=== PATIENT | female | born 1945 | race Hispanic/Latino ===

== ENCOUNTER 2020-07-14 08:00 | Outpatient (CLI) | payer MEDICARE, SELFPAY ==
--- NOTE | ~2020-07-14 | MM_ITS ---
EXAMINATION: MM screening meredith BI w beny HISTORY: Screening mammogram TECHNIQUE: Craniocaudal and mediolateral oblique 3-D tomosynthesis images were obtained and synthetic 2-D images were generated. CAD analysis was submitted and interpreted. COMPARISON: 12/23/2018, 12/19/2017, 12/06/2016 bilateral digital screening mammogram examinations BREAST PARENCHYMAL COMPOSITION: There are scattered areas of fibroglandular density. FINDINGS: There is no evidence of suspicious mass, calcification, or architectural distortion to sugg est malignancy in either breast. There has been no suspicious interval change. IMPRESSION: 1. No mammographic evidence of malignancy. 2. Recommend routine screening mammography in one year. BI-RADS Category 1: Negative Reviewed, dictated and finalized at location A.
== END 2020-07-14 08:01 | disposition home or self-care (01) ==
PROVIDERS: PCP Internal Medicine; Visit Provider Internal Medicine
DX: Z12.31 Encounter for screening mammogram for malignant neoplasm of breast (principal)
CPT/HCPCS: 77063; 77067

== ENCOUNTER 2022-01-30 08:29 | Emergency (ER) | payer MEDICARE, SELFPAY ==
--- NOTE | 2022-01-30 08:32 | ED.EAR ---
HPI - Ear Problem General Chief complaint: Ear Stated complaint: ear pain Time Seen by Provider: 01/30/22 08:32 Source: patient Mode of arrival: ambulatory Limitations: no limitations History of Present Illness HPI Narrative: Ms. Dutton is a 76-year-old female patient presenting to the clinic today with complaints of ear pain x2 days. She reports that her ear does not necessarily hurt a whole lot however she is having difficulty hearing out of her left ear and this is bothersome to her. She denies any fever or chills. She denies any known exposure to anybody with COVID, flu, or strep. MD Complaint: ear pain Related Data Home Medications Medication Instructions Recorded Confirmed lancets 28 gauge #25 each 09/28/19 01/30/22 aspirin 81 mg tablet,delayed 81 mg PO DAILY 03/30/20 01/30/22 release Allergies Allergy/AdvReac Type Severity Reaction Status Date / Time codeine Allergy Unknown Unknown Verified 01/30/22 08:31 Review of Systems Review of Systems: Pertinent positives per HPI. Patient denies any fever, chills, rash, headache, visual changes, dizziness, cough, runny nose, sore throat, shortness of breath, chest pain, palpitations, nausea, vomiting, diarrhea, constipation, abdominal pain, or any urinary issues. [facility] Family History Family History Sibling Diabetes mellitus Hypertension Mother Patient's mother is Father Patient's father is Social History Social History Smoking status: Never smoker Alcohol intake: never Comments At the time of my signature, I reviewed and agree with the nursing past medical, surgical, social, and family history. There is no relevant family history pertinent to the patient complaint. Exam Narrative: General: Well-developed, well nourished, in no apparent distress Head: Normocephalic, atraumatic Eyes: Pupils equally round and reactive to light bilaterally, EOM intact, sclera and conjunctive clear, no discharge, lids normal Ears: Right TMs intact and clear, right ear canal clear, left ear canal swollen and red, unable to visualize left TM, no drainage, unable to hear out of the left ear Nose: Nares patent, no discharge, no inflammation, no sinus tenderness. Mouth: Oropharynx without lesions or masses, good dentition, MMM. Neck: Supple, trachea midline, no enlargement of anterior or posterior cervical nodes, no thyroid masses or goiter palpable. Cardio: Regular rate and rhythm, s1 and s2 normal, no murmur appreciated. Resp: Clear to auscultation bilaterally anteriorly and posteriorly, no rhonchi, rales, wheezing or rubs Course Course Emergency Course: Portions of this record may have been created with voice recognition software. Level of Care: Express Care Visit Vital Signs Vital signs: Vital signs reviewed Medical Decision Making MDM Narrative Medical decision making narrative: At the time of visit patient is resting comfortably on the exam table. Upon exam patient has left ear canal swelling and it appears to be almost swollen shut. Will prescribe prescription for some ofloxacin drops and asked for ear wick to be used. Supportive measures were discussed and patient patient voiced understanding of discharge instructions and agrees to treatment plan. Differential Diagnosis Differential Diagnosis: Otitis externa, otitis media, otalgia, eustachian tube dysfunction, upper respiratory infection Discharge Plan Discharge Clinical Impression: Otitis externa Qualifiers: Otitis externa type: diffuse Chronicity: acute Laterality: left Qualified Code(s): H60.312 - Diffuse otitis externa, left ear Patient Disposition: Home, Self-Care Condition: Stable Instructions: Antibiotic Form, Swimmer's Ear (ED) Additional Instructions: Take any prescribed medications only as directed Instill drops into th
[2022-01-30 08:43] VITALS: BP 112/56; PULSE 65; RESP 16; TEMP 36.3; O2SAT 99
== END 2022-01-30 08:45 | disposition home or self-care (01) ==
LOC: EXPCOLL 08:34
PROVIDERS: Emergency Provider Nurse Practitioner Family; PCP Internal Medicine
DX: H60.312 Diffuse otitis externa, left ear (principal); E78.00 Pure hypercholesterolemia, unspecified; I10 Essential (primary) hypertension; M85.80 Other specified disorders of bone density and structure, unspecified site; H54.7 Unspecified visual loss; E11.39 Type 2 diabetes mellitus with other diabetic ophthalmic complication; H42 Glaucoma in diseases classified elsewhere
CPT/HCPCS: 99213; G0463

== ENCOUNTER 2022-05-20 12:24 | Outpatient (CLI) | payer MEDICARE, SELFPAY | END 2022-05-20 12:25 | disposition home or self-care (01) | LOC: ANHAUDIO 12:24 | PROVIDERS: PCP Family Medicine; Visit Provider Otolaryngology | DX: H93.12 Tinnitus, left ear (principal); H90.3 Sensorineural hearing loss, bilateral | CPT/HCPCS: 92557; 92567 ==

== ENCOUNTER 2022-06-15 08:33 | Outpatient (CLI) | payer MEDICARE, SELFPAY ==
--- NOTE | ~2022-06-15 | MR_ITS ---
EXAMINATION: MR IAC wo/w con DATE: 06/15/2022 10:02 INDICATION: Asymmetric hearing loss. TECHNIQUE: Magnetic resonance imaging (MRI) of the brain, brainstem, and internal auditory canals was performed without and with 15 mL MultiHance intravenous contrast. COMPARISON: None. FINDINGS: There is an empty sella. There is no intracranial hemorrhage, acute infarction, or abnormal intracranial mass lesion. There are scattered areas of nonspecific increased T2-weighted signal inte nsity in the cerebral white matter, which is within normal limits for the patient's age. The ventricl es are normal in size. The internal auditory canals and inner and middle ears are normal. The mastoid air cells are normal. There are likely changes of ocular lens replacement surgeries. There is inject ed material in right ocular globe. There are changes of right-sided scleral banding procedure. 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 The paranasal sinuses are clear. IMPRESSION: 1. No etiology for the patient's symptoms. Reviewed, dictated and finalized at location A.
== END 2022-06-15 08:34 | disposition home or self-care (01) ==
PROVIDERS: PCP Nurse Practitioner; Visit Provider Otolaryngology
DX: H91.93 Unspecified hearing loss, bilateral (principal); H91.8X9 Other specified hearing loss, unspecified ear
CPT/HCPCS: 70553; A9577

== ENCOUNTER 2022-11-06 08:14 | Outpatient (CLI) | payer MEDICARE, SELFPAY ==
[2022-11-06 09:03] LABS: Appearance Urine Slightly Cloudy (Clear); Bilirubin Urine Negative (Negative); Blood Urine Trace-intact (Negative); Color Urine Yellow (Yellow); Glucose Urine UA 3+ mg/dL (Negative); Ketones Urine Negative (Negative); Leukocyte Esterase Ur 1+ LEU/UL (Negative); Nitrate Urine Positive (Negative); Protein Urine Negative (Negative); Specific Grav Ur 1.015 (1.001-1.035); Urobilinogen Urine 0.2 mg/dL (<2.0)
[2022-11-06 09:14] LABS: Anion Gap 9 mmol/L (8-16); Blood Urea Nitrogen 17 mg/dL (7-17); Carbon Dioxide 25 mmol/L (22-30); Chloride 104 mmol/L (98-107); Cholesterol 146 mg/dL (0-200); Estimated Glomerular Filt Rate > 60; Glucose 149 mg/dL (65-110); HDL Direct 40 mg/dL; Potassium 3.8 mmol/L (3.4-5.0); Sodium 138 mmol/L (137-145); Triglycerides 157 mg/dL (<150)
[2022-11-06 09:19] LABS: Hemoglobin A1C 7.5 % (<5.7)
[2022-11-06 09:20] LABS: Bacteria Urine Trace /hpf; Mucus Urine Rare /lpf; Squamous Epithelial Cell Urine Rare /hpf (Few); WBC Clumps Urine Present /HPF; WBC Urine >75 /hpf
[2022-11-06 09:25] LABS: LDL Cholesterol Direct 74 mg/dL
[2022-11-06 09:33] LABS: Add Urine Microscopic? YES
[2022-11-06 09:38] LABS: Creatinine Urine 61.8 mg/dL
[2022-11-06 09:41] LABS: MALB Creatinine Ratio 13.9 mg/g (0-30); Microalbumin Urine Random 8.6 mg/L (0-16.7)
== END 2022-11-06 08:15 | disposition home or self-care (01) ==
LOC: ANHLAB 08:19
PROVIDERS: PCP Nurse Practitioner; Visit Provider Nurse Practitioner Family
DX: N30.01 Acute cystitis with hematuria (principal); M79.18 Myalgia, other site; M25.551 Pain in right hip; M47.9 Spondylosis, unspecified; M54.16 Radiculopathy, lumbar region; R60.9 Edema, unspecified; M54.51 Vertebrogenic low back pain; E78.5 Hyperlipidemia, unspecified; E11.9 Type 2 diabetes mellitus without complications; H54.8 Legal blindness, as defined in USA; J00 Acute nasopharyngitis [common cold]; I10 Essential (primary) hypertension
CPT/HCPCS: 36415; 80048; 80061; 81001; 82043; 83036; 87077; 87086; 87186

== ENCOUNTER 2023-02-14 08:58 | Outpatient (CLI) | payer MEDICARE, SELFPAY ==
[2023-02-14 10:09] LABS: Basophils Percent Auto 0.6 % (0.2-1.2); Eosinophils Percent Auto 0.8 % (0-4.4); Hematocrit 40.8 % (37.0-47.0); Immature Granulocyte Absolute 0.02 K/mm3 (0.00-0.031); Immature Granulocyte Percent A 0.4 % (0-0.5); Lymphocytes Absolute Auto 1.75 K/mm3 (0.9-3.2); Lymphocytes Percent Auto 36.3 % (18.3-44.2); Mean Corpuscular HGB Conc 31.9 g/dl (32-36); Mean Corpuscular Hemoglobin 27.7 pg (26-34); Mean Corpuscular Volume 86.8 fl (80-100); Mean Platelet Volume 9.3 fl (7.4-10.4); Monocytes Absolute Auto 0.4 K/mm3 (0.1-0.6); Monocytes Percent Auto 9.1 % (2.6-8.5); Neutrophils Absolute Auto 2.5 K/mm3 (1.3-6.7); Neutrophils Percent Auto 52.8 % (45.5-73.1); Platelet Count Result 198 k/mm3 (150-375); Red Cell Distribution Width 13.2 % (11.5-14.5); White Blood Count 4.8 K/mm3 (4.5-10.0)
[2023-02-14 10:21] LABS: Alanine Aminotransferase 29 U/L (6-35); Albumin Level 4.2 g/dL (3.5-5.1); Alkaline Phosphatase 55 U/L (38-126); Anion Gap 7 mmol/L (8-16); Aspartate Amino Transferase 29 U/L (14-36); Bilirubin,Total 0.6 mg/dL (0.2-1.3); Blood Urea Nitrogen 22 mg/dL (7-17); Calcium 9.6 mg/dL (8.4-10.2); Carbon Dioxide 29 mmol/L (22-30); Chloride 101 mmol/L (98-107); Cholesterol 146 mg/dL (0-200); Estimated Glomerular Filt Rate > 60; Glucose 139 mg/dL (65-110); HDL Direct 40 mg/dL; Phosphorus 4.3 mg/dL (2.5-4.5); Potassium 3.5 mmol/L (3.4-5.0); Sodium 137 mmol/L (137-145); Triglycerides 140 mg/dL (<150)
[2023-02-14 10:21] LABS: Appearance Urine Clear (Clear); Bacteria Urine 4+ /hpf; Bilirubin Urine Negative (Negative); Blood Urine Negative (Negative); Color Urine Yellow (Yellow); Glucose Urine UA 3+ mg/dL (Negative); Ketones Urine Negative (Negative); Leukocyte Esterase Ur 1+ LEU/UL (Negative); Nitrate Urine Positive (Negative); Non Pathogenic Casts 0-2; Protein Urine Negative (Negative); RBC Urine 0-2 /hpf (0-2); Specific Grav Ur 1.016 (1.001-1.035); Squamous Epithelial Cell Urine None seen /hpf (Few); Urobilinogen Urine 0.2 mg/dL (<2.0); WBC Urine 21-50 /hpf
[2023-02-14 10:22] LABS: Add Urine Microscopic? YES
[2023-02-14 10:25] LABS: Hemoglobin A1C 7.4 % (<5.7)
[2023-02-14 10:32] LABS: LDL Cholesterol Direct 78 mg/dL
[2023-02-14 10:52] LABS: Thyroid Stimulating Hormone 0.722 uIU/mL (0.465-4.680)
[2023-02-14 10:55] LABS: Creatinine Urine 64.4 mg/dL
[2023-02-14 10:59] LABS: MALB Creatinine Ratio 12.1 mg/g (0-30); Microalbumin Urine Random 7.8 mg/L (0-16.7)
[2023-02-14 11:17] LABS: Free T4 Free Thyroxine 1.28 ng/mL (0.78-2.19)
== END 2023-02-14 08:59 | disposition home or self-care (01) ==
PROVIDERS: PCP Nurse Practitioner; Visit Provider Nurse Practitioner Family
DX: J01.11 Acute recurrent frontal sinusitis (principal); M79.18 Myalgia, other site; M25.552 Pain in left hip; M54.16 Radiculopathy, lumbar region; M54.51 Vertebrogenic low back pain; R60.9 Edema, unspecified; I10 Essential (primary) hypertension; M47.9 Spondylosis, unspecified; E11.9 Type 2 diabetes mellitus without complications; H54.8 Legal blindness, as defined in USA; J00 Acute nasopharyngitis [common cold]; N30.01 Acute cystitis with hematuria; R05.9 Cough, unspecified; E78.5 Hyperlipidemia, unspecified
CPT/HCPCS: 36415; 80053; 80061; 81001; 82043; 83036; 84100; 84439; 84443; 85025; 87077; 87086; 87186

== ENCOUNTER 2023-05-20 08:01 | Outpatient (CLI) | payer MEDICARE, SELFPAY ==
[2023-05-20 09:03] LABS: Appearance Urine Cloudy (Clear); Bacteria Urine 4+ /hpf; Bilirubin Urine Negative (Negative); Blood Urine Negative (Negative); Color Urine Yellow (Yellow); Glucose Urine UA 3+ mg/dL (Negative); Ketones Urine Negative (Negative); Leukocyte Esterase Ur 2+ LEU/UL (Negative); Nitrate Urine Positive (Negative); Non Pathogenic Casts 0-2; Protein Urine Negative (Negative); RBC Urine 0-2 /hpf (0-2); Specific Grav Ur 1.018 (1.001-1.035); Squamous Epithelial Cell Urine Moderate /hpf (Few); Urobilinogen Urine 0.2 mg/dL (<2.0); WBC Urine 51-100 /hpf; pH Urine 5.5 (5.0-9.0)
[2023-05-20 09:05] LABS: Add Urine Microscopic? YES
[2023-05-20 09:25] LABS: Creatinine Urine 74.7 mg/dL
[2023-05-20 09:27] LABS: Alanine Aminotransferase 30 U/L (6-35); Alkaline Phosphatase 55 U/L (38-126); Anion Gap 11 mmol/L (8-16); Aspartate Amino Transferase 28 U/L (14-36); Bilirubin,Total 0.5 mg/dL (0.2-1.3); Blood Urea Nitrogen 17 mg/dL (7-17); Calcium 9.3 mg/dL (8.4-10.2); Carbon Dioxide 27 mmol/L (22-30); Chloride 102 mmol/L (98-107); Cholesterol 148 mg/dL (0-200); Estimated Glomerular Filt Rate > 60; Glucose 120 mg/dL (65-110); HDL Direct 45 mg/dL; Potassium 3.6 mmol/L (3.4-5.0); Sodium 140 mmol/L (137-145); Triglycerides 145 mg/dL (<150)
[2023-05-20 09:30] LABS: MALB Creatinine Ratio 20.5 mg/g (0-30); Microalbumin Urine Random 15.3 mg/L (0-16.7)
[2023-05-20 09:38] LABS: LDL Cholesterol Direct 80 mg/dL
[2023-05-20 09:52] LABS: Vitamin D 25 Hydroxy 38.3 ng/mL
[2023-05-20 10:33] LABS: Hemoglobin A1C 7.1 % (<5.7)
== END 2023-05-20 08:02 | disposition home or self-care (01) ==
PROVIDERS: PCP Nurse Practitioner; Visit Provider Nurse Practitioner
DX: N30.00 Acute cystitis without hematuria (principal); E55.9 Vitamin D deficiency, unspecified; M79.18 Myalgia, other site; M25.552 Pain in left hip; M47.9 Spondylosis, unspecified; M54.16 Radiculopathy, lumbar region; R60.9 Edema, unspecified; I10 Essential (primary) hypertension; M54.51 Vertebrogenic low back pain; E11.9 Type 2 diabetes mellitus without complications; J00 Acute nasopharyngitis [common cold]; N30.01 Acute cystitis with hematuria; R05.9 Cough, unspecified; J01.11 Acute recurrent frontal sinusitis; E78.5 Hyperlipidemia, unspecified; H54.8 Legal blindness, as defined in USA
CPT/HCPCS: 36415; 80053; 80061; 81001; 82043; 82306; 83036; 87077; 87086; 87186

== ENCOUNTER 2023-08-22 10:14 | Outpatient (CLI) | payer MEDICARE, SELFPAY ==
[2023-08-22 11:15] LABS: Basophils Percent Auto 0.4 % (0.2-1.2); Eosinophils Percent Auto 0.6 % (0-4.4); Hematocrit 42.3 % (37.0-47.0); Hemoglobin 13.5 g/dL (12.0-15.0); Immature Granulocyte Absolute 0.01 K/mm3 (0.00-0.031); Immature Granulocyte Percent A 0.2 % (0-0.5); Lymphocytes Absolute Auto 1.94 K/mm3 (0.9-3.2); Lymphocytes Percent Auto 37.2 % (18.3-44.2); Mean Corpuscular HGB Conc 31.9 g/dl (32-36); Mean Corpuscular Hemoglobin 28.1 pg (26-34); Mean Corpuscular Volume 87.9 fl (80-100); Mean Platelet Volume 9.5 fl (7.4-10.4); Monocytes Absolute Auto 0.4 K/mm3 (0.1-0.6); Monocytes Percent Auto 8.4 % (2.6-8.5); Neutrophils Absolute Auto 2.8 K/mm3 (1.3-6.7); Neutrophils Percent Auto 53.2 % (45.5-73.1); Platelet Count Result 224 k/mm3 (150-375); Red Blood Count 4.81 M/mm3 (4.2-5.4); Red Cell Distribution Width 13.4 % (11.5-14.5); White Blood Count 5.2 K/mm3 (4.5-10.0)
[2023-08-22 11:26] LABS: Anion Gap 13 mmol/L (8-16); Blood Urea Nitrogen 16 mg/dL (7-17); Calcium 9.7 mg/dL (8.4-10.2); Carbon Dioxide 26 mmol/L (22-30); Chloride 100 mmol/L (98-107); Cholesterol 150 mg/dL (0-200); Estimated Glomerular Filt Rate > 60; Glucose 145 mg/dL (65-110); HDL Direct 43 mg/dL; Potassium 3.6 mmol/L (3.4-5.0); Sodium 139 mmol/L (137-145); Triglycerides 113 mg/dL (<150)
[2023-08-22 11:37] LABS: LDL Cholesterol Direct 83 mg/dL
[2023-08-22 11:41] LABS: Appearance Urine Cloudy (Clear); Bacteria Urine 4+ /hpf; Bilirubin Urine Negative (Negative); Blood Urine Negative (Negative); Color Urine Yellow (Yellow); Glucose Urine UA 3+ mg/dL (Negative); Ketones Urine Negative (Negative); Leukocyte Esterase Ur 2+ LEU/UL (Negative); Nitrate Urine Positive (Negative); Non Pathogenic Casts 0-2; Protein Urine Negative (Negative); RBC Urine 0-2 /hpf (0-2); Squamous Epithelial Cell Urine None seen /hpf (Few); Urobilinogen Urine 0.2 mg/dL (<2.0); WBC Urine >100 /hpf; pH Urine 5.5 (5.0-9.0)
[2023-08-22 11:49] LABS: Add Urine Microscopic? YES
[2023-08-22 12:16] LABS: Vitamin B12 > 1000.0 pg/mL (239-931)
[2023-08-22 13:19] LABS: Creatinine Urine 61.4 mg/dL
[2023-08-22 13:20] LABS: MALB Creatinine Ratio 18.4 mg/g (0-30); Microalbumin Urine Random 11.3 mg/L (0-16.7)
[2023-08-25 19:14] LABS: Methylmalonic Acid 78 nmol/L (87-318)
[2023-08-25 20:10] LABS: Intrinsic Factor Blocking Ab Negative (Negative)
[2023-08-26 13:33] LABS: Homocysteine 8.8 umol/L (<10.4)
[2023-08-27 07:31] LABS: Immunoglobulin A 357 mg/dL (70-320); TTG IGA AB <1.0 U/mL (<15.0)
== END 2023-08-22 10:15 | disposition home or self-care (01) ==
PROVIDERS: PCP Nurse Practitioner; Visit Provider Internal Medicine
DX: R53.83 Other fatigue (principal); M79.18 Myalgia, other site; M25.552 Pain in left hip; M47.9 Spondylosis, unspecified; M54.16 Radiculopathy, lumbar region; R60.9 Edema, unspecified; M54.51 Vertebrogenic low back pain; E78.5 Hyperlipidemia, unspecified; E11.9 Type 2 diabetes mellitus without complications; H54.8 Legal blindness, as defined in USA; N30.00 Acute cystitis without hematuria; R09.81 Nasal congestion; R51.9 Headache, unspecified; I10 Essential (primary) hypertension
CPT/HCPCS: 36415; 80048; 80061; 81001; 82043; 82607; 82784; 83036; 83090; 83921; 85025; 86340; 86364; 87077; 87086; 87186

== ENCOUNTER 2023-11-28 08:07 | Outpatient (CLI) | payer MEDICARE, SELFPAY ==
[2023-11-28 09:30] LABS: Appearance Urine Clear (Clear); Bacteria Urine 4+ /hpf; Bilirubin Urine Negative (Negative); Blood Urine Negative (Negative); Color Urine Yellow (Yellow); Glucose Urine UA 3+ mg/dL (Negative); Ketones Urine Negative (Negative); Leukocyte Esterase Ur 1+ LEU/UL (Negative); Nitrate Urine Positive (Negative); Non Pathogenic Casts 0-2; Protein Urine Negative (Negative); RBC Urine 0-2 /hpf (0-2); Specific Grav Ur 1.023 (1.001-1.035); Squamous Epithelial Cell Urine Few /hpf (Few); Urobilinogen Urine 0.2 mg/dL (<2.0); WBC Urine 51-100 /hpf; pH Urine 5.5 (5.0-9.0)
[2023-11-28 09:32] LABS: Add Urine Microscopic? YES
[2023-11-28 09:51] LABS: Anion Gap 6 mmol/L (8-16); Blood Urea Nitrogen 28 mg/dL (7-17); Calcium 9.6 mg/dL (8.4-10.2); Carbon Dioxide 30 mmol/L (22-30); Chloride 102 mmol/L (98-107); Cholesterol 138 mg/dL (0-200); Estimated Glomerular Filt Rate > 60; Glucose 145 mg/dL (65-110); HDL Direct 42 mg/dL; Potassium 3.4 mmol/L (3.4-5.0); Sodium 138 mmol/L (137-145); Triglycerides 133 mg/dL (<150)
[2023-11-28 10:02] LABS: LDL Cholesterol Direct 83 mg/dL
[2023-11-28 11:11] LABS: Creatinine Urine 70.5 mg/dL
[2023-11-28 11:17] LABS: MALB Creatinine Ratio 12.3 mg/g (0-30); Microalbumin Urine Random 8.7 mg/L (0-16.7)
== END 2023-11-28 08:08 | disposition home or self-care (01) ==
LOC: ANHLAB 08:13
PROVIDERS: PCP Nurse Practitioner; Visit Provider Internal Medicine
DX: L84 Corns and callosities (principal); E78.5 Hyperlipidemia, unspecified; I10 Essential (primary) hypertension; M47.9 Spondylosis, unspecified; M54.51 Vertebrogenic low back pain; R60.9 Edema, unspecified; E11.9 Type 2 diabetes mellitus without complications; H54.8 Legal blindness, as defined in USA; N30.00 Acute cystitis without hematuria; R09.81 Nasal congestion; R51.9 Headache, unspecified; R53.83 Other fatigue
CPT/HCPCS: 36415; 80048; 80061; 81001; 82043; 83036; 87077; 87086; 87088; 87186

== ENCOUNTER 2025-04-21 09:10 | Outpatient (CLI) | payer MEDICARE, SELFPAY ==
--- OUTSIDE RECORDS SUMMARY | 2025-04-21 09:31 | XMS_ITS ---
Author Organization [facility] Touch[employer] Address [address] [place] [address] Care Team Providers Care Blender Operator Name Role Phone Ashly Carrera NP Primary Care Provider Pili Duarte Unavailable [phone] REASON FOR VISIT FOLLOW UP Sertraline Medications Medication SIG (Take, Route, Frequency, Duration) Notes Start Date End Date Status Cefdinir 300 MG TAKE 1 CAPSULE BY MO UTH TWICE DAILY X 5 DAYS FOR UTI. TAKE WITH FOOD Oral; Duration: 5 Days Not-Takin g Cefuroxime Axetil 500 MG TAKE 1 TABLET ( 500 MG) BY MOUTH TWICE A DAY Oral; Duration: 5 Days Not-Takin g metFORMIN HCl 1000 MG TAKE 1 TABLET BY M OUTH TWICE A DAY Oral; Duration: 90 Days Not-Taking Ibuprofen 600 MG TAKE 1 TABLET BY SHAYNA TH EVERY 8 HOURS NEEDED FOR PAIN Oral; Duration: 30 Days Not-Taking Sertraline HCl 25 MG 1 tablet every morn ing Orally Once a day; Duration: 30 days Active Potassium Chloride ER 10 MEQ Oral; Duration: 90 Days Acti ve Atorvastatin Calcium 20 MG TAKE 1 TABLET BY MOUTH EVERY DAY Oral; Duration: 90 Days Active Timolol Maleate 0.5 % Ophthalmic; Durati on: 75 Days Not-Taking Azelastine HCl 137 MCG/SPRAY Nasal; Duration: 50 Days Not-Taking Lisinopril-hydroCHLOROthi azide 20-25 MG TAKE 1 TABLET BY MOUTH EVERY DAY Oral; Duration: 90 Days Active Brimonidine Tartrate 0.2 % INSTILL 1 DROP INTO BOTH EYES TWICE A DAY Ophthalmic; Duration: 90 Days Active Atorvastatin Calcium 20 MG TAKE 1 TABLET BY MOUTH EVERY DAY Oral; Duration: 90 Days Active prednisoLONE Acetate 1 % Ophthalmic; Dur ation: 56 Days Active Latanoprost 0.005 % Ophthalmic; Duration : 90 Days Active Lisinopril-hydroCHLOROthi azide 20-25 MG TAKE 1 TABLET BY MOUTH EVERY DAY Oral; Duration: 90 Days Active Timolol Maleate 0.5 % INSTILL 1 DROP INT O BOTH EYES TWICE A DAY Ophthalmic; Duration: 75 Days Active Brimonidine Tartrate 0.2 % Ophthalmic; Duration: 90 Days Active Azelastine HCl 137 MCG/SPRAY INSTILL 2 SPRAYS IN NOSE ONCE DAILY FOR CONGESTION Nasal; Duration: 50 Days Active Ibuprofen 600 MG Oral; Duration: 30 Days Active Ibuprofen 600 MG Oral; Duration: 30 Days Active metFORMIN HCl 1000 MG Oral; Duration: 90 Days Active Sertraline HCl 25 MG 1 tablet Orally Onc e a day; Duration: 30 days Active Social History Sex Assigned At : Social History Observation Description Sex Assigned At Female Encounters Encounter Location Date Provider Diagnosis [facility] [address] [facility] [address] [place] [address] 07/15/2024 Pili Gonzalez MDD (major depressive disorder), recurrent episode, moderate F33.1 ; DESTINY (generalized anxiety disorder) F41.1 ; Vision loss H54.7 ; Grief reaction F43.21 and 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.05 Assessments Encounter Date Diagnosis (ICD Code) Assessment Notes Treatment Notes Treatment Clinical Notes Section Notes 07/15/2024 MDD (major depressive disorder), recurrent episode, moderate (ICD-10 - F33.1) major depression acute- discuss and educated on rx options Zoloft 25 mg daily Anxiety - Zoloft 25 mg daily Grief - discuss therapy - patient prefer to wait at this time Insomnia- Melatonin OTC 3-5 mg patient reported helps PRN Discussed and educated pt regarding benzodiazepines are generally not intended for prolonged use and that use can cause tolerance, dependence, depression, and associated memory issues including dementias (this list is not exhaustive). Benzodiazepine use is generally not recommended concurrently with pain medications and/or other controlled substances educated on all medications, benefits, side effects and risk, and educated on depression, anxiety, and ADHD, mood d/o and educated on compliance of medications, metabolic and movement d/o education appointment is, continue therapy discussion with patient about course of treatment and patient instructions. education on serotonin syndrome SSRI/SNRI side effects discussed including but not limited to, gastric upset, nausea, vomiting, diarrhea and/or constipation, weight changes, sexual side effects including loss of libido, increased suicidal thoughts/behaviors in children and young adults, and serotonin syndrome. Second generation antipsychotics (SGAs) have metabolic syndrome issues with weight gain, increase in prolactin, increased waist circumference, increased lipids, and increased glucose. Thus routine monitoring of weight, metabolic labs, etc. is indicated. A general rank ordering of antipsychotics that have the greatest to the least risk of metabolic effects is olanzapine, quetiapine, risperidone, ziprasidone, and aripiprazole. However, weight gain can occur with all of these drugs and considerable variability exists among patients receiving the same drug regarding the risk of metabolic effects. Anti-psychotic agents not only increase the risk of metabolic disorder, they also increase the risk of CVA, akathisia, and movement disorders including EPS or tardive dyskinesia (more common with first generation antipsychotics) and more. Elderly- discussed risks, cognition, sedation, falls, metabolic, movement and atypical antipsychotics carry a black-box warning for increased risk of and cerebrovascular events in dementia. Medication Management and Follow-Up - Plan: - Schedule follow-up appointments every 1-3 months to monitor the patient's response to the medication regimen. - Reinforce the importance of avoiding recreational drug use due to potential neurotoxicity and interactions with prescribed medications. http_s://www.pablo. org/Uxfbb-Cfooch-I llness/Mental-Heal th-Conditions http_s://psychcent [employer].com/depression /mgb-qrqjbupuh-nuk zwugo-xi-gwhkuiwqd n#treatments http__s://www.nimh .nih.gov/health/to pics/mental-health -medications http__s://www.pablo .org/About-Mental- Illness/Treatments /Dqpujx-Bnuhzc-Upn ications 07/15/2024 DESTINY (generalized anxiety disorder) (ICD-10 - F41.1) major depression acute- discuss and educated on rx options Zoloft 25 mg daily Anxiety - Zoloft 25 mg daily Grief - discuss therapy - patient prefer to wait at this time Insomnia- Melatonin OTC 3-5 mg patient reported helps PRN Discussed and educated pt regarding benzodiazepines are generally not intended for prolonged use and that use can cause tolerance, dependence, depression, and associated memory issues including dementias (this list is not exhaustive). Benzodiazepine use is generally not recommended concurrently with pain medications and/or other controlled substances educated on all medications, benefits, side effects and risk, and educated on depression, anxiety, and ADHD, mood d/o and educated on compliance of medications, metabolic and movement d/o education appointment is, continue therapy discussion with patient about course of treatment and patient instructions. education on serotonin syndrome SSRI/SNRI side effects discussed including but not limited to, gastric upset, nausea, vomiting, diarrhea and/or constipation, weight changes, sexual side effects including loss of libido, increased suicidal thoughts/behaviors in children and young adults, and serotonin syndrome. Second generation antipsychotics (SGAs) have metabolic syndrome issues with weight gain, increase in prolactin, increased waist circumference, increased lipids, and increased glucose. Thus routine monitoring of weight, metabolic labs, etc. is indicated. A general rank ordering of antipsychotics that have the greatest to the least risk of metabolic effects is olanzapine, quetiapine, risperidone, ziprasidone, and aripiprazole. However, weight gain can occur with all of these drugs and considerable variability exists among patients receiving the same drug regarding the risk of metabolic effects. Anti-psychotic agents not only increase the risk of metabolic disorder, they also increase the risk of CVA, akathisia, and movement disorders including EPS or tardive dyskinesia (more common with first generation antipsychotics) and more. Elderly- discussed risks, cognition, sedation, falls, metabolic, movement and atypical antipsychotics carry a black-box warning for increased risk of and cerebrovascular events in dementia. Medication Management and Follow-Up - Plan: - Schedule follow-up appointments every 1-3 months to monitor the patient's response to the medication regimen. - Reinforce the importance of avoiding recreational drug use due to potential neurotoxicity and interactions with prescribed medications. http_s://www.pablo. org/Bnpbg-Zvdwkv-T llness/Mental-Heal th-Conditions http_s://psychcent [employer].com/depression /zvt-ttkcjxrsv-niv cobof-wp-mpradcrwp n#treatments http__s://www.nimh .nih.gov/health/to pics/mental-health -medications http__s://www.pablo .org/About-Mental- Illness/Treatments /Bchcit-Kxxbjz-Mge ications 07/15/2024 Vision loss (ICD-10 - H54.7) major depression acute- discuss and educated on rx options Zoloft 25 mg daily Anxiety - Zoloft 25 mg daily Grief - discuss therapy - patient prefer to wait at this time Insomnia- Melatonin OTC 3-5 mg patient reported helps PRN Discussed and educated pt regarding benzodiazepines are generally not intended for prolonged use and that use can cause tolerance, dependence, depression, and associated memory issues including dementias (this list is not exhaustive). Benzodiazepine use is generally not recommended concurrently with pain medications and/or other controlled substances educated on all medications, benefits, side effects and risk, and educated on depression, anxiety, and ADHD, mood d/o and educated on compliance of medications, metabolic and movement d/o education appointment is, continue therapy discussion with patient about course of treatment and patient instructions. education on serotonin syndrome SSRI/SNRI side effects discussed including but not limited to, gastric upset, nausea, vomiting, diarrhea and/or constipation, weight changes, sexual side effects including loss of libido, increased suicidal thoughts/behaviors in children and young adults, and serotonin syndrome. Second generation antipsychotics (SGAs) have metabolic syndrome issues with weight gain, increase in prolactin, increased waist circumference, increased lipids, and increased glucose. Thus routine monitoring of weight, metabolic labs, etc. is indicated. A general rank ordering of antipsychotics that have the greatest to the least risk of metabolic effects is olanzapine, quetiapine, risperidone, ziprasidone, and aripiprazole. However, weight gain can occur with all of these drugs and considerable variability exists among patients receiving the same drug regarding the risk of metabolic effects. Anti-psychotic agents not only increase the risk of metabolic disorder, they also increase the risk of CVA, akathisia, and movement disorders including EPS or tardive dyskinesia (more common with first generation antipsychotics) and more. Elderly- discussed risks, cognition, sedation, falls, metabolic, movement and atypical antipsychotics carry a black-box warning for increased risk of and cerebrovascular events in dementia. Medication Management and Follow-Up - Plan: - Schedule follow-up appointments every 1-3 months to monitor the patient's response to the medication regimen. - Reinforce the importance of avoiding recreational drug use due to potential neurotoxicity and interactions with prescribed medications. http_s://www.pablo. org/Znhzw-Mzbylq-B llness/Mental-Heal th-Conditions http_s://psychcent ral.com/depression /rls-nxmtmwdkf-cer yyvcm-ek-ttlddkvgy n#treatments http__s://www.[facility] .nih.gov/health/to pics/mental-health -medications http__s://www.pablo .org/About-Mental- Illness/Treatments /Bmeeoi-Tuedsm-Pvr ications 07/15/2024 Grief reaction (ICD-10 - F43.21) major depression acute- discuss and educated on rx options Zoloft 25 mg daily Anxiety - Zoloft 25 mg daily Grief - discuss therapy - patient prefer to wait at this time Insomnia- Melatonin OTC 3-5 mg patient reported helps PRN Discussed and educated pt regarding benzodiazepines are generally not intended for prolonged use and that use can cause tolerance, dependence, depression, and associated memory issues including dementias (this list is not exhaustive). Benzodiazepine use is generally not recommended concurrently with pain medications and/or other controlled substances educated on all medications, benefits, side effects and risk, and educated on depression, anxiety, and ADHD, mood d/o and educated on compliance of medications, metabolic and movement d/o education appointment is, continue therapy discussion with patient about course of treatment and patient instructions. education on serotonin syndrome SSRI/SNRI side effects discussed including but not limited to, gastric upset, nausea, vomiting, diarrhea and/or constipation, weight changes, sexual side effects including loss of libido, increased suicidal thoughts/behaviors in children and young adults, and serotonin syndrome. Second generation antipsychotics (SGAs) have metabolic syndrome issues with weight gain, increase in prolactin, increased waist circumference, increased lipids, and increased glucose. Thus routine monitoring of weight, metabolic labs, etc. is indicated. A general rank ordering of antipsychotics that have the greatest to the least risk of metabolic effects is olanzapine, quetiapine, risperidone, ziprasidone, and aripiprazole. However, weight gain can occur with all of these drugs and considerable variability exists among patients receiving the same drug regarding the risk of metabolic effects. Anti-psychotic agents not only increase the risk of metabolic disorder, they also increase the risk of CVA, akathisia, and movement disorders including EPS or tardive dyskinesia (more common with first generation antipsychotics) and more. Elderly- discussed risks, cognition, sedation, falls, metabolic, movement and atypical antipsychotics carry a black-box warning for increased risk of and cerebrovascular events in dementia. Medication Management and Follow-Up - Plan: - Schedule follow-up appointments every 1-3 months to monitor the patient's response to the medication regimen. - Reinforce the importance of avoiding recreational drug use due to potential neurotoxicity and interactions with prescribed medications. http_s://www.pablo. org/Zcsrp-Dhenep-P llness/Mental-Heal th-Conditions http_s://[employer]/depression /ppo-bafreboxl-cts gdsip-fc-glrpnbnpk n#treatments http__s://www.nimh .nih.gov/health/to pics/mental-health -medications http__s://www.pablo .org/About-Mental- Illness/Treatments /Xdgmzd-Gyruqx-Qec ications 07/15/2024 Insomnia related to another mental disorder (ICD-10 - F51.05) major depression acute- discuss and educated on rx options Zoloft 25 mg daily Anxiety - Zoloft 25 mg daily Grief - discuss therapy - patient prefer to wait at this time Insomnia- Melatonin OTC 3-5 mg patient reported helps PRN Discussed and educated pt regarding benzodiazepines are generally not intended for prolonged use and that use can cause tolerance, dependence, depression, and associated memory issues including dementias (this list is not exhaustive). Benzodiazepine use is generally not recommended concurrently with pain medications and/or other controlled substances educated on all medications, benefits, side effects and risk, and educated on depression, anxiety, and ADHD, mood d/o and educated on compliance of medications, metabolic and movement d/o education appointment is, continue therapy discussion with patient about course of treatment and patient instructions. education on serotonin syndrome SSRI/SNRI side effects discussed including but not limited to, gastric upset, nausea, vomiting, diarrhea and/or constipation, weight changes, sexual side effects including loss of libido, increased suicidal thoughts/behaviors in children and young adults, and serotonin syndrome. Second generation antipsychotics (SGAs) have metabolic syndrome issues with weight gain, increase in prolactin, increased waist circumference, increased lipids, and increased glucose. Thus routine monitoring of weight, metabolic labs, etc. is indicated. A general rank ordering of antipsychotics that have the greatest to the least risk of metabolic effects is olanzapine, quetiapine, risperidone, ziprasidone, and aripiprazole. However, weight gain can occur with all of these drugs and considerable variability exists among patients receiving the same drug regarding the risk of metabolic effects. Anti-psychotic agents not only increase the risk of metabolic disorder, they also increase the risk of CVA, akathisia, and movement disorders including EPS or tardive dyskinesia (more common with first generation antipsychotics) and more. Elderly- discussed risks, cognition, sedation, falls, metabolic, movement and atypical antipsychotics carry a black-box warning for increased risk of and cerebrovascular events in dementia. Medication Management and Follow-Up - Plan: - Schedule follow-up appointments every 1-3 months to monitor the patient's response to the medication regimen. - Reinforce the importance of avoiding recreational drug use due to potential neurotoxicity and interactions with prescribed medications. http_s://www.pablo. org/Mclii-Ymubrv-K llness/Mental-Heal th-Conditions http_s://psychcent [employer].com/depression /hbm-mlzhqykia-ltj xprvp-pc-kwxhhbodt n#treatments http__s://www.nim .nih.gov/health/to pics/mental-health -medications http__s://www.pablo .org/About-Mental- Illness/Treatments /Ixrdbe-Jpsteq-Lgf ications Plan Of Treatment Medication Medication Name Sig Start Date Stop Date Notes Sertraline HCl 25 MG 1 tablet Orally Onc e a day; Duration: 30 days Progress Notes * Marlene OLSEN GDOB:10/1945 (79 yo F)Acc No.[id number]:07/15/2024 Patient: Tram SIDDIQInza Nancy Provider: LAQUITA MAHMOOD :1945 A ge:78 Y S ex:Female Date:07/15/2024 [id number] Pcp:Ashly Carrera NP Subjective: * Chief Complaints: * 1 . FOLLOW UP Sertraline. * HPI: D epression screening: PHQ-9 L ittle interest or pleasure in doing things?Not at all F eeling down, depressed, or hopeless M ore than half the days T rouble falling or staying asleep, or sleeping too much S everal days F eeling tired or having little energy M ore than half the days P oor appetite or overeating N ot at all F eeling bad about yourself or that you are a failure, or have let yourself or your family down S everal days T rouble concentrating on things, such as reading the newspaper or watching television N ot at all M oving or speaking so slowly that other people could have noticed; or the opposite, being so fidgety or restless that you have been moving around a lot more than usual N ot at all T houghts that you would be better off or of hurting yourself in some way N ot at all T otal Score 6 I nterpretation M ild Depression This is a 78 year old female here to follow up depression and anxiety and grief, reported Sertraline establish care for when I wake up I get real depressed and cry a lot and my family asked me to come see someone, 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 He lost job 06/14 after that went down. I feel sad and down, I feel hopeless and helpless, I am not anxious or resltess and tearful today, when remembers son get sad, sleep on sofa in day dozes off, night time sometimes all night and sometimes bathroom and back to bed, I sleep 6-7 hours, appetite good, weight was 170 pounds 4-5 months ago and now 164.2, I am eating meals and pretty good, motivation and interest I work around house and cook and do what ever I can and laundry, I am able to conccentrate and focus, I am not upset or agitated or irritable, noauditory or visual hallucinations, no delusions, no paranoia, no argelia no hypomania, I pray a lot and restoration and Holy days, 55 years 08/17/24 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 H istory of Presenting Problem: ETOH- smoking - former labs drugs- denies presently taking no rx for mental. M anic episode: Manic N o past history of Argelia. S chizophrenia/Schizophreniform/Schizoaffective disorder/Brief reactive psychosis: Psychotic symptoms N o past history of psychosis. P sychotherapy Information: Psychotherapy History C urrently in therapy N o * ROS: P sychiatric: Delusions d enies. S ee HPI denies, SOB, Chest pain, cough, no palpitations reported neck has knee and joint pain, occassional b ack- get injections- reported excises daily steady gait reported no GI issues GERD no NV/D APPETITE varies- weight loss - urination issues at times at night use bathroom on water pill denies seizures, loss conscious, occasional headaches, no tremors, no abnormal movement d/o reported depression, anxiety, safe in relationship, sleep stable, no A/V hallucination, no delusions, no argelia or hypomania, no SI/HI, no agitation, fatigue reported reported allergies and no sore throat- s een PCP - FRAME COVERER Lluvia Sagastume glasses- retina detachment - 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 [facility]K hearing aids. * Medical History: * Medications: T aking metFORMIN HCl 1000 MG Tablet Oral , Taking Azelastine HCl 137 MCG/SPRAY Solution INSTILL 2 SPRAYS IN NOSE ONCE DAILY FOR CONGESTION Nasal , Taking Timolol Maleate 0.5 % Solution INSTILL 1 DROP INTO BOTH EYES TWICE A DAY Ophthalmic , Taking Brimonidine Tartrate 0.2 % Solution Ophthalmic , Taking Ibuprofen 600 MG Tablet Oral , Taking Ibuprofen 600 MG Tablet Oral , Taking Brimonidine Tartrate 0.2 % Solution INSTILL 1 DROP INTO BOTH EYES TWICE A DAY Ophthalmic , Taking Atorvastatin Calcium 20 MG Tablet TAKE 1 TABLET BY MOUTH EVERY DAY Oral , Taking Latanoprost 0.005 % Solution Ophthalmic , Taking Lisinopril-hydroCHLOROthiazide 20-25 MG Tablet TAKE 1 TABLET BY MOUTH EVERY DAY Oral , Taking prednisoLONE Acetate 1 % Suspension Ophthalmic , Taking Atorvastatin Calcium 20 MG Tablet TAKE 1 TABLET BY MOUTH EVERY DAY Oral , Taking Potassium Chloride ER 10 MEQ Capsule Extended Release Oral , Taking Lisinopril-hydroCHLOROthiazide 20-25 MG Tablet TAKE 1 TABLET BY MOUTH EVERY DAY Oral , Taking Sertraline HCl 25 MG Tablet 1 tablet every morning Orally Once a day , Not-Taking Timolol Maleate 0.5 % Solution Ophthalmic , Not-Taking Azelastine HCl 137 MCG/SPRAY Solution Nasal , Not-Taking metFORMIN HCl 1000 MG Tablet TAKE 1 TABLET BY MOUTH TWICE A DAY Oral , Not-Taking Ibuprofen 600 MG Tablet TAKE 1 TABLET BY MOUTH EVERY 8 HOURS NEEDED FOR PAIN Oral , Not-Taking Cefdinir 300 MG Capsule TAKE 1 CAPSULE BY MOUTH TWICE DAILY X 5 DAYS FOR UTI. TAKE WITH FOOD Oral , Not-Taking Cefuroxime Axetil 500 MG Tablet TAKE 1 TABLET (500 MG) BY MOUTH TWICE A DAY Oral Objective: * Vitals: * Examination: P sychiatry: Dementia S afety concern screening for dangerousness to self and environment risks provided: Y es W hat action was taken to mitigate the risk??Education provided T opics discussed for environmental risks:?Home safety risks that could arise from cooking or smoking, Access to firearms or other weapons, Access to potentially dangerous chemicals and other materials T opics discussed for dangerousness to self:?Medication misuse, Financial mismanagement S afety concern mitigation recommendation provided: N ot required S creening Result: N egative C aregiver education and support provided Y es Appearance: w ell-groomed. Abnormal body movements: n one. Affect / mood: a ppropriate, full range. Aggression: l ow. Anger control: g ood. Attention: g ood. Attitude: c ooperative. Homicidal ideation: n one. Suicidal ideation: n one. 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 Degree of awareness of surroundings: w ithin normal limits.? Delusions: n o. Hallucinations: n o. Impulse control: g ood. Insight: g ood. Intellectual functioning: a verage. Comprehension - Intellectual function: a verage. Abstract / proverb - Intellectual function: n ot tested.? Judgement: g ood. Orientation: a wake, alert and oriented x 3. Perceptual disorders: n o perceptual disorder noted. Psychomotor activity: w ithin normal range. Sexual impulse control: g ood. Speech / language: a ppropriate pitch/modulation. Thought content: a ppropriate. Thought process: i ntact. Assessment: * Assessment: 1. M DD (major depressive disorder), recurrent episode, moderate - F33.1 (Primary) ?2. G AD (generalized anxiety disorder) - F41.1 3 . V ision loss - H54.7? 4. G rief reaction - F43.21 5 . I nsomnia related to another mental disorder - F51.05 major depression acute- discuss and educated on rx options Zoloft 25 mg daily Anxiety - Zoloft 25 mg daily Grief - discuss therapy - patient prefer to wait at this time Insomnia- Melatonin OTC 3-5 mg patient reported helps PRN Discussed and educated pt regarding benzodiazepines are generally not intended for prolonged use and that use can cause tolerance, dependence, depression, and associated memory issues including dementias (this list is not exhaustive). Benzodiazepine use is generally not recommended concurrently with pain medications and/or other controlled substances educated on all medications, benefits, side effects and risk, and educated on depression, anxiety, and ADHD, mood d/o and educated on compliance of medications, metabolic and movement d/o education appointment is, continue therapy discussion with patient about course of treatment and patient instructions. education on serotonin syndrome SSRI/SNRI side effects discussed including but not limited to, gastric upset, nausea, vomiting, diarrhea and/or constipation, weight changes, sexual side effects including loss of libido, increased suicidal thoughts/behaviors in children and young adults, and serotonin syndrome. Second generation antipsychotics (SGAs) have metabolic syndrome issues with weight gain, increase in prolactin, increased waist circumference, increased lipids, and increased glucose. Thus routine monitoring of weight, metabolic labs, etc. is indicated. A general rank ordering of antipsychotics that have the greatest to the least risk of metabolic effects is olanzapine, quetiapine, risperidone, ziprasidone, and aripiprazole. However, weight gain can occur with all of these drugs and considerable variability exists among patients receiving the same drug regarding the risk of metabolic effects. Anti-psychotic agents not only increase the risk of metabolic disorder, they also increase the risk of CVA, akathisia, and movement disorders including EPS or tardive dyskinesia (more common with first generation antipsychotics) and more. Elderly- discussed risks, cognition, sedation, falls, metabolic, movement and atypical antipsychotics carry a black-box warning for increased risk of and cerebrovascular events in dementia. Medication Management and Follow-Up - Plan: - Schedule follow-up appointments every 1-3 months to monitor the patient's response to the medication regimen. - Reinforce the importance of avoiding recreational drug use due to potential neurotoxicity and interactions with prescribed medications. http_s://www.pablo.org/Uoiku-Aiizze-Yikvtou/Fpopbv-Ymbelt-Cnevmbdtgx http_s://psychcentral.com/depression/ooy-qaqamvckm-zymrasrm-of-depression#treatm ents http__s://www.nimh.nih.gov/health/topics/hyqqkt-fceuzc-vdikugvwmyi http__s://www.pablo.org/Dmhzn-Ptetzj-Fogahvw/Treatments/Wvbgll-Wzynoz-Muosyzujtrl Plan: * Treatment: * Procedure Codes: G 2211 VISIT COMPLEXITY INHERENT TO ONGOING CARE RELATED TO A PATIENT'S SINGLE, SERIOUS CONDITION OR A COMPLEX CONDITION * Billing Information: * Visit Code: 47251 OFFICE OUTPATIENT VISIT 25 MINUTES DETAILED HISTORY AND EXAM/MODERATE MEDICAL DECISION MAKING. * Procedure Codes: G2211 VISIT COMPLEXITY INHERENT TO ONGOING CARE RELATED TO A PATIENT'S SINGLE, SERIOUS CONDITION OR A COMPLEX CONDITION. * Electronic signature of LAQUITA Syed on 04/21/2025 at 09:30 AM CDT Sign off status: Pending * Provider: LAQUITA MAHMOOD Date: Generated for Suman june/Mike/Michelle on: 04/21/2025 09:30 AM CDT History and Physical Notes * HPI (History of Present Illness) Category Sub-Category Detail Notes Category Not es Manic episode Manic No past history of Argelia Schizophrenia/Schi zophreniform/Schiz oaffective disorder/Brief reactive psychosis Psychotic symptoms No past history of psychosis History of Presenting Problem ETOH- smoking - former labs drugs- denies presently taking no rx for mental Depression screening PHQ-9 Little interest or pleasure in doing things: Not at all This is a 78 year old female here to follow up depression and anxiety and grief, reported Sertraline establish care for when I wake up I get real depressed and cry a lot and my family asked me to come see someone, 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 He lost job 06/14 after that went down. I feel sad and down, I feel hopeless and helpless, I am not anxious or resltess and tearful today, when remembers son get sad, sleep on sofa in day dozes off, night time sometimes all night and sometimes bathroom and back to bed, I sleep 6-7 hours, appetite good, weight was 170 pounds 4-5 months ago and now 164.2, I am eating meals and pretty good, motivation and interest I work around house and cook and do what ever I can and laundry, I am able to conccentrate and focus, I am not upset or agitated or irritable, noauditory or visual hallucinations, no delusions, no paranoia, no argelia no hypomania, I pray a lot and restoration and Holy days, 55 years 08/17/24 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 hx psychiatry rx SLUMS Feeling down, depressed, or hopeless: Mo re than half the days Trouble falling or staying asleep, or sl eeping too much: Several days Feeling tired or having little energy: M ore than half the days Poor appetite or overeating: Not at all Feeling bad about yourself o r that you are a failure, or have let yourself or your family down: Several days Trouble concentrating on thi ngs, such as reading the newspaper or watching television: Not at all Moving or speaking so slowly that other people could have noticed; or the opposite, being so fidgety or restless that you have been moving around a lot more than usual: Not at all Thoughts that you would be b joy off or of hurting yourself in some way: Not at all Total Score: 6 Interpretation: Mild Depression Psychotherapy Information Psychotherapy History Currently in therapy: No Examination Category Sub-Category Detail Notes Category Not es Psychiatry Appearance: well-groomed Attitude: cooperative Psychomotor activity: within normal rang e Abnormal body movements: none Attention: good Degree of awareness of surroundings: wit hin normal limits Orientation: awake, alert and geno ented x 3 Affect / mood: appropriate, full ra nge Speech / language: appropriate pitch/mo dulation Insight: good Judgement: good Thought process: intact Thought content: appropriate Perceptual disorders: no perceptual diso rder noted Aggression: low Anger control: good Suicidal ideation: none Homicidal ideation: none Intellectual functioning: average Impulse control: good Sexual impulse control: good Memory status: no impairment noted, able to repeat table, car, door, knows what they ate for breakfast, able to describe childhood events- grew up poor, [place] and happy, stayed there until age [age] years old, brother passed, has 7 sisters, and stayed with mom, and 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, 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, 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, 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, 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, 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, then chance to come to [facility] with uncle age 21 and went to dance first week and met and got , Delusions: no Hallucinations: no Comprehension - Intellectual function: a verage Abstract / proverb - Intelle ctual function: not tested Dementia Safety concern scree kam for dangerousness to self and environment risks provided:: Yes What action was taken to mitigate the risk?: Education provided Topics discussed for environmental risks:: Home safety risks that could arise from cooking or smoking, Access to firearms or other weapons, Access to potentially dangerous chemicals and other materials Topics discussed for dangerousness to self:: Medication misuse, Financial mismanagement Safety concern mitigation recommendation provided:: Not required Screening Result:: Negative Caregiver education and support provided : Yes
--- OUTSIDE RECORDS SUMMARY | 2025-04-21 09:31 | XMS_ITS | Patient Health Record ---
Author Organization [facility] Address [address] [facility] [address] [place] [address] Care Team Providers Care General Claims Agent Name Role Phone Ashly Carrera NP Primary Care Provider Pili Duarte Unavailable [phone] Allergies Allergen (clinical drug ingredient) Drug/Non Drug Allergy documented on EMR Reaction Allergy Type Onset Date Status codeine Codeine Unknown Drug Allergy Active Reason For Referral No Information Medications Medication SIG (Take, Route, Frequency, Duration) Notes Start Date End Date Status metFORMIN HCl 1000 MG TAKE 1 TABLET BY M OUTH TWICE A DAY Oral; Duration: 90 Days Not-Taking Azelastine HCl 137 MCG/SPRAY INSTILL 2 SPRAYS IN NOSE ONCE DAILY FOR CONGESTION Nasal; Duration: 50 Days Active metFORMIN HCl 1000 MG Oral; Duration: 90 Days Active Atorvastatin Calcium 20 MG TAKE 1 TABLET BY MOUTH EVERY DAY Oral; Duration: 90 Days Active Cefdinir 300 MG TAKE 1 CAPSULE BY MO IDH TWICE DAILY X 5 DAYS FOR UTI. TAKE WITH FOOD Oral; Duration: 5 Days Not-Takin g Brimonidine Tartrate 0.2 % INSTILL 1 DROP INTO BOTH EYES TWICE A DAY Ophthalmic; Duration: 90 Days Active Ibuprofen 600 MG TAKE 1 TABLET BY SHAYNA TH EVERY 8 HOURS NEEDED FOR PAIN Oral; Duration: 30 Days Not-Taking Ibuprofen 600 MG Oral; Duration: 30 Days Active Timolol Maleate 0.5 % INSTILL 1 DROP INT O BOTH EYES TWICE A DAY Ophthalmic; Duration: 75 Days Active Sertraline HCl 25 MG 1 tablet Orally Onc e a day; Duration: 90 days Active Atorvastatin Calcium 20 MG TAKE 1 TABLET BY MOUTH EVERY DAY Oral; Duration: 90 Days Active prednisoLONE Acetate 1 % Ophthalmic; Dur ation: 56 Days Active Lisinopril-hydroCHLOROthi azide 20-25 MG TAKE 1 TABLET BY MOUTH EVERY DAY Oral; Duration: 90 Days Active Latanoprost 0.005 % Ophthalmic; Duration : 90 Days Active Cefuroxime Axetil 500 MG TAKE 1 TABLET ( 500 MG) BY MOUTH TWICE A DAY Oral; Duration: 5 Days Not-Takin g Azelastine HCl 137 MCG/SPRAY Nasal; Duration: 50 Days Not-Taking Timolol Maleate 0.5 % Ophthalmic; Durati on: 75 Days Not-Taking Potassium Chloride ER 10 MEQ Oral; Duration: 90 Days Acti ve Social History Tobacco Use: Social History Observation Description Date Details (start date - stop date) Former Smoker NA - NA Sex Assigned At : Social History Observation Description Sex Assigned At Female Tobacco Control (Standard) Question Answer Notes Tobacco use: Former smoker Problems Problem Type SNOMED Code ICD Code Onset Dates Problem Status W/U Status Risk Notes Problem Generalized anxiety disorder (14394640) DESTINY (generalized anxiety disorder) (F41.1) Active confirmed Problem Moderate recurrent major depression (74268565) MDD (major depressive disorder), recurrent episode, moderate (F33.1) Active confirmed Problem Insomnia disorder related to another mental disorder (49171109) 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) Active confirmed Problem Adjustment disorder with depressed mood (59553177) Grief reaction (F43.21) Active confirmed Problem Functional visual loss (317815929) Vision loss (H54.7) Active confirmed Vital Signs Heart Rate 67 /min 07/16/2024 Height-cm 157.48 cm 07/16/2024 Blood pressure diastolic 84 mm Hg 07/16/2024 Weight-kg 74.57 kg 07/16/2024 Height 62 in 07/16/2024 Blood pressure systolic 134 mm Hg 07/16/2024 Weight 164.4 lbs 07/16/2024 BMI 30.07 kg/m2 07/16/2024 Encounters Encounter Location Date Provider Diagnosis [facility] [address] [place] [address] 05/25/2024 Pili Gonzalez MDD (major depressive disorder), recurrent episode, moderate F33.1 ; DESTINY (generalized anxiety disorder) F41.1 ; Vision loss H54.7 ; Grief reaction F43.21 and 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.05 [facility] [address] [place] [address] 07/16/2024 Pili Gonzalez MDD (major depressive disorder), recurrent episode, moderate F33.1 ; DESTINY (generalized anxiety disorder) F41.1 ; Vision loss H54.7 ; Grief reaction F43.21 ; 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.05 and Elevated blood pressure reading R03.0 [facility] [address] [place] [address] 06/20/2024 Pili Gonzalez Assessments Encounter Date Diagnosis (ICD Code) Assessment Notes Treatment Notes Treatment Clinical Notes Section Notes 05/25/2024 DESTINY (generalized anxiety disorder) (ICD-10 - F41.1) [...] neurotoxicity and interactions with prescribed medications. http_s://www.pablo. org/Kelhl-Gcxluh-B llness/Mental-Heal th-Conditions http_s://[employer].com/depression /hyy-oxbcpqzad-nly rcwgc-ha-vauxmjpld n#treatments http__s://www.nimh .nih.gov/health/to pics/mental-health -medications http__s://www.pablo .org/About-Mental- Illness/Treatments /Rmsdeq-Qjsbdz-Txm ications 05/25/2024 MDD (major depressive disorder), recurrent episode, moderate [...] neurotoxicity and interactions with prescribed medications. http_s://www.pablo. org/Fljqd-Lpfrhe-U llness/Mental-Heal th-Conditions http_s://psychcent [employer].com/depression /eoy-acnmncvuj-ohm zfboh-dm-cesosnvxq n#treatments http__s://www.nimh .nih.gov/health/to pics/mental-health -medications http__s://www.pablo .org/About-Mental- Illness/Treatments /Jvxtlr-Efvfdc-Trv ications 07/16/2024 DESTINY (generalized anxiety disorder) (ICD-10 - F41.1) major depression acute- discuss and educated on rx options Zoloft 25 mg daily Anxiety - Zoloft 25 mg daily Grief - discuss therapy - patient prefer to wait at this time Insomnia- Melatonin OTC 3-5 mg patient reported helps PRN 07/16/24 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 Medication Management and Follow-Up - Plan: - Schedule follow-up appointments every 1-3 months to monitor the patient's response to the medication regimen. - Reinforce the importance of avoiding recreational drug use due to potential neurotoxicity and interactions with prescribed medications. http_s://www.pablo. org/Fovsj-Kulsja-O llness/Mental-Heal th-Conditions http_s://psychcent [employer].com/depression /qbh-sgnmbopbm-obi qlrtq-xs-ujrjqhtja n#treatments http__s://www.nim .nih.gov/health/to pics/mental-health -medications http__s://www.pablo .org/About-Mental- Illness/Treatments /Cfrvgc-Oiwcex-Kei ications 07/16/2024 MDD (major depressive disorder), recurrent episode, moderate (ICD-10 - F33.1) major depression acute- discuss and educated on rx options Zoloft 25 mg daily Anxiety - Zoloft 25 mg daily Grief - discuss therapy - patient prefer to wait at this time Insomnia- Melatonin OTC 3-5 mg patient reported helps PRN 07/16/24 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 Medication Management and Follow-Up - Plan: - Schedule follow-up appointments every 1-3 months to monitor the patient's response to the medication regimen. - Reinforce the importance of avoiding recreational drug use due to potential neurotoxicity and interactions with prescribed medications. http_s://www.pablo. 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 Medication Management and Follow-Up - Plan: - Schedule follow-up appointments every 1-3 months to monitor the patient's response to the medication regimen. - Reinforce the importance of avoiding recreational drug use due to potential neurotoxicity and interactions with prescribed medications. http_s://www.pablo. org/Bvylf-Alcpio-E llness/Mental-Heal th-Conditions http_s://psychcent [employer].com/depression /zqn-npafazfzb-cft fbsdh-tj-voyyifuwp n#treatments http__s://www.nim .nih.gov/health/to pics/mental-health -medications http__s://www.pablo .org/About-Mental- Illness/Treatments /Snjrdo-Wxigyy-Eqv ications 05/25/2024 Vision loss (ICD-10 - H54.7) major depression [...] neurotoxicity and interactions with prescribed medications. http_s://www.pablo. org/Ephxb-Uygnnn-P llness/Mental-Heal th-Conditions http_s://psychcent [employer].com/depression /mgj-wuktohblm-zyr zrwbb-vl-umenrmfli n#treatments http__s://www.nimh .nih.gov/health/to pics/mental-health -medications http__s://www.pablo .org/About-Mental- Illness/Treatments /Irljym-Mjyefp-Low ications 05/25/2024 Grief reaction (ICD-10 - F43.21) major depression [...] neurotoxicity and interactions with prescribed medications. http_s://www.pablo. org/Gjtfk-Feoyfs-M llness/Mental-Heal th-Conditions http_s://psychcent [employer].com/depression /ycl-vswblmdyw-cdk zwill-gi-lapomaphy n#treatments http__s://www.nimh .nih.gov/health/to pics/mental-health -medications http__s://www.pablo .org/About-Mental- Illness/Treatments /Ralwzu-Shgbae-Skg ications 07/16/2024 Grief reaction (ICD-10 - F43.21) major depression acute- discuss and educated on rx options Zoloft 25 mg daily Anxiety - Zoloft 25 mg daily Grief - discuss therapy - patient prefer to wait at this time Insomnia- Melatonin OTC 3-5 mg patient reported helps PRN 07/16/24 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 Medication Management and Follow-Up - Plan: - Schedule follow-up appointments every 1-3 months to monitor the patient's response to the medication regimen. - Reinforce the importance of avoiding recreational drug use due to potential neurotoxicity and interactions with prescribed medications. http_s://www.pablo. org/Usywt-Zczxqs-S llness/Mental-Heal th-Conditions http_s://psychcent [employer].com/depression /oam-xgvncgvxg-jrh iuwgf-wh-ndlntdtrx n#treatments http__s://www.nimh .nih.gov/health/to pics/mental-health -medications http__s://www.pablo .org/About-Mental- Illness/Treatments /Zeawau-Xliqcf-Ejf ications 07/16/2024 Insomnia related to another mental disorder (ICD-10 - F51.05) major depression acute- discuss and educated on rx options Zoloft 25 mg daily Anxiety - Zoloft 25 mg daily Grief - discuss therapy - patient prefer to wait at this time Insomnia- Melatonin OTC 3-5 mg patient reported helps PRN 07/16/24 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 Medication Management and Follow-Up - Plan: - Schedule follow-up appointments every 1-3 months to monitor the patient's response to the medication regimen. - Reinforce the importance of avoiding recreational drug use due to potential neurotoxicity and interactions with prescribed medications. http_s://www.pablo. org/Xqwvf-Efpntp-T llness/Mental-Heal th-Conditions http_s://[employer].com/depression /hlr-zqsllgvni-uoy zcsin-ke-spmlhzjqm n#treatments http__s://www.[facility] .nih.gov/health/to pics/mental-health -medications http__s://www.pablo .org/About-Mental- Illness/Treatments /Snqpac-Ihkslq-Rmr ications 05/25/2024 Insomnia related to another mental disorder (ICD-10 [...] neurotoxicity and interactions with prescribed medications. http_s://www.pablo. org/Pcxzw-Lfeirh-A llness/Mental-Heal th-Conditions http_s://[employer]/depression /ojl-itbecszeb-viy yefsj-zv-fvhlrdpiy n#treatments http__s://www.nimh .nih.gov/health/to pics/mental-health -medications http__s://www.pablo .org/About-Mental- Illness/Treatments /Vknhwf-Fptxue-Rdz ications 07/16/2024 Elevated blood pressure reading (ICD-10 - R03.0) major depression acute- discuss and educated on rx options Zoloft 25 mg daily Anxiety - Zoloft 25 mg daily Grief - discuss therapy - patient prefer to wait at this time Insomnia- Melatonin OTC 3-5 mg patient reported helps PRN 07/16/24 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 Medication Management and Follow-Up - Plan: - Schedule follow-up appointments every 1-3 months to monitor the patient's response to the medication regimen. - Reinforce the importance of avoiding recreational drug use due to potential neurotoxicity and interactions with prescribed medications. http_s://www.pablo. org/Cnhsl-Qvlqfy-M llness/Mental-Heal th-Conditions http_s://psychcent [employer].com/depression /cwh-wwvclxnyx-vki avoxn-uc-vkqeiesvk n#treatments http__s://www.nimh .nih.gov/health/to pics/mental-health -medications http__s://www.pablo .org/About-Mental- Illness/Treatments /Bhbvro-Bbkflp-Fnm ications 05/25/2024 Other Learning About Depression Screening material was printed referral to the local chapter or national office of the Alzheimer's [employer] (1-559-137-370 0; http://www.alz .org), the Alzheimer's Disease Education and Referral Center (ADEAR) (5-464-266-449 0; http://www.mary .nih.gov/Alzhe imers/), major depression acute- discuss and educated on [...] neurotoxicity and interactions with prescribed medications. http_s://www.pablo. org/Qoafb-Ysuwgl-R llness/Mental-Heal th-Conditions http_s://psychcent [employer].com/depression /esy-sedeecuor-dak iqtiz-ls-nhmmnfsdd n#treatments http__s://www.nimh .nih.gov/health/to pics/mental-health -medications http__s://www.pablo .org/About-Mental- Illness/Treatments /Dafwqp-Sjweqz-Suc ications 07/15/2024 major depression acute- discuss and educated on [...] neurotoxicity and interactions with prescribed medications. http_s://www.pablo. org/Mkuwo-Tmbvqe-Z llness/Mental-Heal th-Conditions http_s://psychcent ral.com/depression /mvg-jtnblware-tmy ivxxh-wv-zclzalvao n#treatments http__s://www.nimh .nih.gov/health/to pics/mental-health -medications http__s://www.pablo .org/About-Mental- Illness/Treatments /Bqoqga-Iiwmcu-Gza ications Plan Of Treatment Pending Test Test Name Order Date UDT 05/25/2024 Insurance Providers Payer Name Payer Address Payer Phone Subscriber Number Group Number Insured Name Patient Relationship to Insured Coverage Start Date Coverage End Date [employer] [address] [place] [phone] [id number] L Marlene Dutton Self - patient is the insured Medical (General) History Medical History History ICD Code retina detachment Surgical History Surgery Date(Month/Year) gallbladder 1971 hysterectomy 1984 retina detachment 2005
== END 2025-04-21 09:11 | disposition home or self-care (01) ==
PROVIDERS: PCP Nurse Practitioner
DX: L50.9 Urticaria, unspecified (principal)
CPT/HCPCS: 36415; 82785; 83520